=== PATIENT | female | born 1945 | race Caucasian/White ===

== ENCOUNTER 2018-04-08 03:38 | Emergency (ER) | payer MEDICARE ==
[~2018-04-08] VITALS: Ht 160 cm; Wt 67.1 kg
[~2018-04-08 03:38] MED LIST: CIPR500T94 PO
--- NOTE | 2018-04-08 03:49 | ED.ADGEN ---
Past History Past Medical History: No Pertinent History, CAD, Hypertension Past Surgical History: Angioplasty, Other Alcohol Use: Occasionally Drug Use: None Adult General Chief Complaint Chief Complaint ".. I had a heart attack in December... I went to [facility] and they sent me to [facility] for treatment... 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 And I started getting this epigastric pain ... I thought it was acid reflux... But it did not go away and got much worse here in the last 30 minutes or so..." [facility] HPI Patient is a 72 year old female who presents with above hx and complaints of epigastric and chest pain . Patient currently rates her pain as 8 out of 10. Some radiation to left breast. Patient has history of previous heart attack in December- patient seen at [place] and then transferred to [facility] of acute STEMI. Pt. at [place], where she received a stent of her mid LAD 95 % lesion and RCA 80% lesion. Pt.a repeat stent approximately 2 weeks later. Pt. was followed with Dr. Boles and Dr. Walters. . Patient does have a history of hypertension. No history of trauma. No history of bad food. No history of dark or tarry stools. Patient does not smoke. Review of Systems Review of Systems Constitutional: Denies fever or chills [] Eyes: Denies change in visual acuity, redness, or eye pain [] HENT: Denies nasal congestion or sore throat [] Respiratory: Denies cough or shortness of breath [] Cardiovascular: No additional information not addressed in [facility] [] GI: Denies abdominal pain, nausea, vomiting, bloody stools or diarrhea [] : Denies dysuria or hematuria [] Musculoskeletal: Denies back pain or joint pain [] Integument: Denies rash or skin lesions [] Neurologic: Denies headache, focal weakness or sensory changes [] Endocrine: Denies polyuria or polydipsia [] All other systems were reviewed and found to be within normal limits, except as documented in this note. Family History Family History Noncontributory Current Medications Current Medications Current Medications Medications (Trade) Dose Ordered Sig/Tatyana Start Time Stop Time Status Last Admin Dose Admin Aspirin (Children'S Aspirin) 324 mg 1X ONCE 04/08/18 04:30 04/08/18 04:31 DC 04/08/18 04:51 324 MG Enoxaparin Sodium (Lovenox 80mg Syringe) 70 mg 1X ONCE 04/08/18 04:30 04/08/18 04:31 DC 04/08/18 04:52 70 MG Famotidine (Pepcid) 20 mg 1X ONCE 04/08/18 04:30 04/08/18 04:31 DC Morphine Sulfate (Morphine 2mg Syringe) 2 mg 1X ONCE 04/08/18 04:30 04/08/18 04:31 DC 04/08/18 04:17 2 MG Nitroglycerin (Nitro-Bid Oint) 1 inch 1X ONCE 04/08/18 04:30 04/08/18 04:31 DC 04/08/18 04:26 1 INCH Nitroglycerin/ Dextrose 250 ml @ 0 mls/hr 1X ONCE 04/08/18 05:00 04/08/18 05:01 DC 04/08/18 05:00 5 MLS/HR Ondansetron HCl (Zofran) 4 mg STK-MED ONCE 04/08/18 04:06 04/08/18 04:07 DC Sodium Chloride 1,000 ml @ 100 mls/hr Q10H 04/08/18 04:30 04/08/18 05:35 DC 04/08/18 04:16 100 MLS/HR See nursing for home medications Allergies Allergies Allergies Coded Allergies Type Severity Reaction Last Updated Verified No Known Drug Allergies 07/01/15 No Physical Exam Physical Exam Constitutional: in acute distress,ill in appearance. [] HENT: Normocephalic, atraumatic, bilateral external ears normal, oropharynx moist, no oral exudates, nose normal. [] Eyes: PERRLA, EOMI, conjunctiva normal, no discharge. [] Glasses. Neck: Normal range of motion, no tenderness, supple, no stridor. [] Cardiovascular: Bradycarida Heart rate regular rhythm, no murmur []PMI to Lt. Lungs & Thorax: Bilateral breath sounds equal at apex on auscultation [] Abdomen: Bowel sounds normal, soft, epigastric tenderness, no masses, no pulsatile masses. [] Skin: Warm, very diaphoretic, no erythema, no rash. [] Back: No tenderness, no CVA tenderness. [] Extremities: No tenderness, no cyanosis, no clubbing, ROM intact, no edema. [] No cording. Neurologic: Alert and oriented X 3, normal motor function, normal sensory function, no focal deficits noted. [] Psychologic: Affect anxious judgement normal, mood normal. [] Current Patient Data Vital Signs Vital Signs Date Time Temp Pulse Resp B/P (MAP) Pulse Ox O2 Delivery O2 Flow Rate FiO2 04/08/18 05:32 56 16 163/117 (132) 98 Room Air 04/08/18 04:30 2.0 04/08/18 03:42 98.3 Lab Results Laboratory Tests Test 04/08/18 03:50 White Blood Count 6.8 x10^3/uL (4.0-11.0) Red Blood Count 3.75 x10^6/uL (3.50-5.40) Hemoglobin 11.7 g/dL (12.0-15.5) L Hematocrit 34.8 % (36.0-47.0) L Mean Corpuscular Volume 93 fL (79-100) Mean Corpuscular Hemoglobin 31 pg (25-35) Mean Corpuscular Hemoglobin Concent 34 g/dL (31-37) Red Cell Distribution Width 12.8 % (11.5-14.5) Platelet Count 263 x10^3/uL (140-400) Neutrophils (%) (Auto) 59 % (31-73) Lymphocytes (%) (Auto) 27 % (24-48) Monocytes (%) (Auto) 10 % (0-9) H Eosinophils (%) (Auto) 2 % (0-3) Basophils (%) (Auto) 1 % (0-3) Neutrophils # (Auto) 4.0 x10^3uL (1.8-7.7) Lymphocytes # (Auto) 1.9 x10^3/uL (1.0-4.8) Monocytes # (Auto) 0.7 x10^3/uL (0.0-1.1) Eosinophils # (Auto) 0.2 x10^3/uL (0.0-0.7) Basophils # (Auto) 0.1 x10^3/uL (0.0-0.2) Prothrombin Time 10.2 SEC (9.4-11.4) Prothrombin Time INR 1.0 (0.9-1.1) PTT 26 SEC (23-33) D-Dimer (Neva) 0.80 mg/L (0.00-0.50) H Sodium Level 139 mmol/L (136-145) Potassium Level 3.7 mmol/L (3.5-5.1) Chloride Level 103 mmol/L (98-107) Carbon Dioxide Level 31 mmol/L (21-32) Anion Gap 5 (6-14) L Blood Urea Nitrogen 15 mg/dL (7-20) Creatinine 0.8 mg/dL (0.6-1.0) Estimated GFR (Cockcroft-Gault) 70.9 Glucose Level 104 mg/dL (70-99) H Calcium Level 9.3 mg/dL (8.5-10.1) Magnesium Level 2.0 mg/dL (1.8-2.4) Total Bilirubin 0.3 mg/dL (0.2-1.0) Direct Bilirubin 0.1 mg/dL (0.0-0.2) Aspartate Amino Transferase (AST) 22 U/L (15-37) Alanine Aminotransferase (ALT) 29 U/L (14-59) Alkaline Phosphatase 93 U/L (46-116) Creatine Kinase 60 U/L (26-192) Creatine Kinase MB (Mass) < 0.5 ng/mL (0.0-3.6) Creatine Kinase MB Relative Index 0.8 % (0-4) Troponin I Quantitative < 0.017 ng/mL (0-0.055) IT-Cfu-A-Type Natriuretic Peptide 219 pg/mL (0-124) H Total Protein 7.4 g/dL (6.4-8.2) Albumin 3.8 g/dL (3.4-5.0) Lipase 166 U/L (73-393) EKG EKG My interpretation EKG shows a sinus bradycardia at 56 bpm. She does have findings of left axis and LVH.[] Radiology/Procedures Radiology/Procedures My interpretation of chest x-ray shows no acute cardiopulmonary findings. Does have enlarged cardiac silhouette. No free air in the diaphragm. Does have some mild arthritic changes.[] Course & Med Decision Making Course & Med Decision Making Pertinent Labs and Imaging studies reviewed. (See chart for details) Pt. CP persists after multiple dosages of Morphine and Nitro. Drip-. min. improvement- Discussed presentation, testing and tx. plan with Dr. Hidalgo- will follow pt. at [facility] Pt. to be admitted to Dr. Felton- as primary. will accept pt at [facility]. Critical Care 90 min. [Reviewed [facility] records that became available. Final Impression Final Impression 1. Chest Pain[] 2. Accelerated Hypertension 3. Anemia 4. Elevated D-dimer Dragon Disclaimer Dragon Disclaimer This electronic medical record was generated, in whole or in part, using a voice recognition dictation system. CHRISTIANO SALEH MD Apr 08, 2018 03:49
--- NOTE | 2018-04-08 03:56 | EKG ---
[address] [address] Test Date: 2018-04-08 Test Time: 03:48:56 Pat Name: MEE HAMMOND Department: Room: Gender: F Benefits Assistant: : 1945 Requested By: CHRISTIANO SALEH Order Number: [id number] Reading MD: Eusebio Matthew MD Measurements Intervals [place] Rate: 56 P: 36 NE: 162 QRS: -22 QRSD: 80 T: -1 QT: 408 QTc: 396 Interpretive Statements SINUS RHYTHM Electronically Signed On 04-08-2018 10:26:35 CDT by Eusebio Matthew MD
[2018-04-08] MEDS ORDERED: ONDANSETRON PF 4 MG/2 ML VIAL. ONE (04:06)
[2018-04-08 04:10] LABS: BASO # 0.1 x10^3/uL (0.0-0.2); BASO % 1 % (0-3); EOS # 0.2 x10^3/uL (0.0-0.7); EOS % 2 % (0-3); HEMATOCRIT 34.8 % (36.0-47.0); HEMOGLOBIN 11.7 g/dL (12.0-15.5); LYMPH # 1.9 x10^3/uL (1.0-4.8); LYMPH % 27 % (24-48); MEAN CORPUSCULAR HEMOGLOBIN 31 pg (25-35); MEAN CORPUSCULAR HGB CONC 34 g/dL (31-37); MEAN CORPUSCULAR VOLUME 93 fL (79-100); MONO # 0.7 x10^3/uL (0.0-1.1); MONO % 10 % (0-9); NEUT % 59 % (31-73); PLATELET COUNT 263 x10^3/uL (140-400); RED BLOOD COUNT 3.75 x10^6/uL (3.50-5.40); RED CELL DISTRIBUTION WIDTH 12.8 % (11.5-14.5); WHITE BLOOD COUNT 6.8 x10^3/uL (4.0-11.0)
--- NOTE | 2018-04-08 04:11 | RAD ---
Chest AP portable at 0347: Reason for examination: Chest pain and nausea. Comparison is made to previous study dated 07/01/2015. The heart size is normal. Mediastinum is unremarkable. Lung rowley are clear. No acute bony abnormalities are seen. Impression: No acute cardiopulmonary disease. Electronically signed by: Ladi Monterroso MD (04/08/2018 4:07 AM) [facility]
[2018-04-08] MEDS ORDERED: ENOXAPARIN ** NOTE DOSE ** SYRINGE SQ ONE (04:30)
[2018-04-08] MEDS ORDERED: ONDANSETRON PF 4 MG/2 ML VIAL. IV ONE (04:30)
[2018-04-08] MEDS ORDERED: MORPHINE SULFATE 2 MG/ML DISP.SYRIN. IV ONE (04:30)
[2018-04-08] MEDS ORDERED: ASPIRIN 81 MG TAB.CHEW PO ONE (04:30)
[2018-04-08] MEDS ORDERED: IV NORMAL SALINE 1,000ML 1,000 ML IV SCH (04:30)
[2018-04-08] MEDS ORDERED: FAMOTIDINE 20 MG TABLET PO ONE (04:30)
[2018-04-08] MEDS ORDERED: NITROGLYCERIN OINT 1 GM PACKET. TP ONE (04:30)
[2018-04-08 04:35] LABS: ALBUMIN 3.8 g/dL (3.4-5.0); ALK PHOS 93 U/L (46-116); ALT (SGPT) 29 U/L (14-59); ANION GAP 5 (6-14); AST (SGOT) 22 U/L (15-37); BLOOD UREA NITROGEN 15 mg/dL (7-20); CALCIUM 9.3 mg/dL (8.5-10.1); CARBON DIOXIDE 31 mmol/L (21-32); CHLORIDE 103 mmol/L (98-107); CREATININE 0.8 mg/dL (0.6-1.0); DIRECT BILIRUBIN 0.1 mg/dL (0.0-0.2); GFR 70.9; GLUCOSE 104 mg/dL (70-99); LIPASE 166 U/L (73-393); POTASSIUM 3.7 mmol/L (3.5-5.1); SODIUM 139 mmol/L (136-145); TOTAL BILIRUBIN 0.3 mg/dL (0.2-1.0); TOTAL PROTEIN 7.4 g/dL (6.4-8.2)
[2018-04-08] MEDS ORDERED: NITROGLYCERIN PREMIX 250 ML IV ONE (05:00)
--- NOTE | 2018-04-08 05:07 | EKG ---
[address] [address] Test Date: 2018-04-08 Test Time: 04:44:07 Pat Name: MEE HAMMOND Department: Room: Gender: F Pierogi Maker: : 1945 Requested By: CHRISTIANO SALEH Order Number: [id number] Reading MD: Eusebio Matthew MD Measurements Intervals Panther Rate: 65 P: 52 DC: 166 QRS: -24 QRSD: 82 T: -1 QT: 400 QTc: 417 Interpretive Statements SINUS RHYTHM NON-SPECIFIC ST/T CHANGES Electronically Signed On 04-08-2018 10:27:00 CDT by Eusebio Matthew MD
[2018-04-08 05:32] VITALS: BP 163/117
[2018-04-08 13:31] LABS: THYROID STIM HORMONE (TSH) 3.652 uIU/mL (0.358-3.740)
== END 2018-04-08 05:32 | disposition short-term general hospital (02) ==
LOC: ER 03:38
DX: I10 Essential (primary) hypertension (principal); D64.9 Anemia, unspecified; R79.1 Abnormal coagulation profile; R10.13 Epigastric pain; I25.10 Atherosclerotic heart disease of native coronary artery without angina pectoris; Z98.61 Coronary angioplasty status
CPT/HCPCS: 36415; 71045; 80048; 80061; 80076; 82553; 83690; 83735; 83880; 84443; 84484; 85025; 85379; 85610; 85730; 93005; 96365; 96372; 96375; 99291; 99292; J1650; J2270; J2405; J3490; J7030

== ENCOUNTER 2018-10-20 14:52 | Inpatient (IN) | payer MEDICARE ==
[~2018-10-20] VITALS: Ht 160 cm; Wt 69.6 kg
--- NOTE | 2018-10-20 15:21 | RAD ---
EXAM: Chest, single view. HISTORY: Chest pain. COMPARISON: 04/08/2018. FINDINGS: A frontal view of the chest obtained. There is no infiltrate, pleural effusion or pneumothorax. The heart is normal in size. IMPRESSION: No acute pulmonary finding. Electronically signed by: Marilin Aguilar MD (10/20/2018 3:16 PM) [place] [id number]
[2018-10-20 15:30] LABS: BASO % 0 % (0-3); EOS # 0.1 x10^3/uL (0.0-0.7); EOS % 1 % (0-3); HEMATOCRIT 41.9 % (36.0-47.0); LYMPH # 0.4 x10^3/uL (1.0-4.8); LYMPH % 7 % (24-48); MEAN CORPUSCULAR HEMOGLOBIN 32 pg (25-35); MEAN CORPUSCULAR HGB CONC 34 g/dL (31-37); MEAN CORPUSCULAR VOLUME 96 fL (79-100); MONO # 0.2 x10^3/uL (0.0-1.1); MONO % 4 % (0-9); NEUT # 5.1 x10^3uL (1.8-7.7); NEUT % 87 % (31-73); PLATELET COUNT 209 x10^3/uL (140-400); RED BLOOD COUNT 4.38 x10^6/uL (3.50-5.40); RED CELL DISTRIBUTION WIDTH 14.6 % (11.5-14.5); WHITE BLOOD COUNT 5.9 x10^3/uL (4.0-11.0)
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
[2018-10-20 15:50] LABS: ALBUMIN 3.8 g/dL (3.4-5.0); ALBUMIN/GLOBULIN RATIO 1.1 (1.0-1.7); CALCIUM 8.9 mg/dL (8.5-10.1); CREATININE 0.7 mg/dL (0.6-1.0); GFR 82.5; POTASSIUM 3.9 mmol/L (3.5-5.1); TOTAL BILIRUBIN 0.8 mg/dL (0.2-1.0); TOTAL PROTEIN 7.2 g/dL (6.4-8.2)
[2018-10-20 17:30] VITALS: BP 156/77
--- NOTE | 2018-10-20 17:33 | EKG ---
[address] [address] Test Date: 2018-10-20 Test Time: 15:03:26 Pat Name: MEE HAMMOND Department: Room: Gender: F Pot Reliner: : 1945 Requested By: HELIO CAMPBELL Order Number: [id number] Reading MD: Measurements Intervals Melvin Rate: 68 P: 36 CT: 158 QRS: -29 QRSD: 80 T: 27 QT: 370 QTc: 394 Interpretive Statements SINUS RHYTHM LEFTWARD AXIS QRS(T) CONTOUR ABNORMALITY CONSIDER ANTEROSEPTAL MYOCARDIAL DAMAGE POSSIBLY ABNORMAL ECG RI6.01 Unconfirmed report No previous ECG available for comparison
[2018-10-20] MEDS ORDERED: ATOR40TA59 PO (19:28)
[2018-10-20] MEDS ORDERED: CARV3.123 PO (19:28)
[2018-10-20] MEDS ORDERED: FERR325T14 PO (19:28)
[2018-10-20] MEDS ORDERED: LISI10TA2 PO (19:28)
[2018-10-20] MEDS ORDERED: CLOP75TA PO (19:28)
[2018-10-20] MEDS ORDERED: ISOS30TA4 PO (19:28)
[2018-10-20 20:00] VITALS: BP 136/76
[2018-10-20 22:24] VITALS: BP_SYST 134; BP_SYST 144; BP_DIAS 73; BP_DIAS 77
[2018-10-21] VITALS (8 sets, daily range): BP systolic 96–155; BP diastolic 60–77
[2018-10-21] MEDS: CARVEDILOL 3.125 MG TABLET PO SCH ×2 (07:58→17:09)
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
[2018-10-21] MEDS ORDERED: ISOSORBIDE MONONITRATE ER 30 MG TAB.ER.24H PO SCH (09:00)
[2018-10-21] MEDS ORDERED: FERROUS SULFATE 325 MG TABLET. PO SCH (09:00)
[2018-10-21] MEDS ORDERED: LISINOPRIL 20 MG TABLET PO SCH (09:00)
[2018-10-21] MEDS ORDERED: CLOPIDOGREL BISULFATE 75 MG TABLET PO SCH (09:00)
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
[2018-10-21] MEDS ORDERED: ATORVASTATIN CALCIUM 20 MG TABLET PO SCH (21:00)
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
== END 2018-10-21 20:05 | disposition home or self-care (01) | DRG 204 ==
LOC: ER 14:52 → 1 SOUTH 15:35
PROVIDERS: ADMIT Internal Medicine; ATTEND Internal Medicine
DX: R07.81 Pleurodynia (principal); E78.5 Hyperlipidemia, unspecified; I10 Essential (primary) hypertension; I25.10 Atherosclerotic heart disease of native coronary artery without angina pectoris; I25.2 Old myocardial infarction; Z79.02 Long term (current) use of antithrombotics/antiplatelets; Z79.899 Other long term (current) drug therapy; Z82.49 Family history of ischemic heart disease and other diseases of the circulatory system; Z95.5 Presence of coronary angioplasty implant and graft
CPT/HCPCS: 36415; 71045; 80053; 80061; 82550; 83690; 83735; 83880; 84484; 85025; 93005; 93306; 99285-25